=== PATIENT | female | born 1950 | race Caucasian/White ===

== ENCOUNTER 2016-05-19 17:06 | Inpatient (IN) | payer OTHER ==
[~2016-05-19] VITALS: Ht 167.6 cm; Wt 69.1 kg
[~2016-05-19 17:06] MED LIST: BENA10TA48 PO; DOCU-144 PO; FER325 PO; NIFE30TA60 PO; OMEP40CA6 PO
[2016-05-19 20:43] VITALS: PULSE 100
[2016-05-19 21:00] VITALS: BP 167/84; RESP 20
[2016-05-19 22:30] VITALS: BP 146/67; PULSE 91; RESP 18
[2016-05-19] MEDS ORDERED: hydrALAzine 20 MG INJ IV PRN (22:30)
[2016-05-19] MEDS ORDERED: ACETAMINOPHEN 325 MG TAB PO PRN (22:30)
[2016-05-19] MEDS: DEXTROSE 5%-0.45% NACL 1,000 ML IV SCH (22:35)
[2016-05-19 23:46] VITALS: Ht 167.6 cm; Wt 69.1 kg
[2016-05-20] VITALS (8 sets, daily range): BP systolic 116–146; BP diastolic 59–67; PULSE 80–97; RESP 18–21
[2016-05-20] MEDS ORDERED: SMV40T PO (03:23)
[2016-05-20] MEDS ORDERED: CLOP75TA27 PO (03:23)
[2016-05-20] MEDS ORDERED: OMEP20CA16 PO (03:23)
[2016-05-20] MEDS ORDERED: AMLO-147 PO (03:23)
[2016-05-20] MEDS ORDERED: FOLI-49 PO (03:23)
[2016-05-20] MEDS: PANTOPRAZOLE 40 MG INJ IV SCH ×2 (05:28→17:51)
[2016-05-20 06:50] LABS: ALBUMIN 3.4 g/dl (3.3-4.9)
[2016-05-20 06:51] LABS: POTASSIUM 3.7 mmol/L (3.5-5.1)
[2016-05-20 06:53] LABS: BILIRUBIN,INDIRECT 0.3 mg/dl (0-1.1); BILIRUBIN,TOTAL 0.3 mg/dl (0.2-1.3); CALCIUM 8.4 mg/dl (8.4-10.2); CREATININE 0.49 mg/dl (0.44-1.00); TOTAL PROTEIN 6.8 g/dl (6.1-8.1)
[2016-05-20 07:04] LABS: HEMATOCRIT 24.1 % (37.0-47.0); HEMOGLOBIN 7.9 g/dl (12.0-16.0); MEAN CORPUSCULAR HEMOGLOBIN 24.2 pg (29.0-33.0); MEAN CORPUSCULAR HGB CONC 32.9 g/dl (32.0-37.0); MEAN CORPUSCULAR VOLUME 73.6 fl (82.0-101.0); RED BLOOD COUNT 3.28 10^6/ul (4.20-5.40); RED CELL DISTRIBUTION WIDTH 20.3 % (11.5-14.5); UNCORRECTED WBC 4.6 10^3/ul (4.8-10.8); WHITE BLOOD COUNT 4.6 10^3/ul (4.8-10.8)
[2016-05-20 07:11] LABS: CONDITION 1; LH ANALYZER COMMENTS 1; SUSPECT 1
[2016-05-20 07:12] LABS: MEAN PLATELET VOLUME 12.1 fl (7.4-10.4); PLATELET COUNT 158 10^3/UL (140-440)
[2016-05-20 09:53] LABS: EOSINOPHILS # 0.2 10^3/ul (0.0-0.5); MONOCYTE # 0.6 10^3/ul (0.3-0.9); NEUTROPHIL # 1.8 10^3/ul (1.6-7.5)
[2016-05-20 09:54] LABS: ANISOCYTOSIS 2+; HYPOCHROMASIA 2+; MICROCYTOSIS 2+
[2016-05-20 09:55] LABS: POLYCHROMASIA 1+
[2016-05-20 09:56] LABS: PLATELET ESTIMATE PLT APPEAR ADEQUATE
--- NOTE | 2016-05-20 09:56 | QN ---
Documentation Comment [id number] IVORY CUETO MD May 20, 2016 09:56
--- NOTE | 2016-05-20 13:01 | CONS ---
Date/Time of Note Date/Time of Note DATE: 05/20/16 TIME: 12:53 Assessment/Plan Assessment/Plan Chief Complaint/Hosp Course Impression: 1. Anemia: stable after transfusion 2. Osteoarthritis 3. dyslipidemia Recommendations: 1. continue protonix 40 mg po bid until she receives EGD and colonoscopy 2. patient will f/u with her out-pt GI once insurance authorization approved for EGD and colonoscopy 3. will perform emergent EGD and colonosocopy if pt develops s/s of overt GIB with downtrending h/h 4. as h/h stable and no e/o overt GIB, ok from GI perspective to dc home to f/u with her PCP and GI MD. Problems: Consultation Date/Type/Reason Admit Date/Time May 19, 2016 at 20:30 Type of Consultation: GI Reason for Consultation symptomatic anemia, r/o GIB Hx of Present Illness 65 yo F, h/o OA and hyperlipidemia, admitted for symptomatic anemia. She was found to have anemia and referral to GI was made and she was awaiting insurance authorization. Unfortunately, she was found to have hgb 7 with orthostatic symptoms and sent by her PCP to hospital. She is s/p pRBC transfusion. Occult blood done in ER is trace positive. Patient denies melena, BRBPR, coffee ground emesis, or hematemesis. She also denies N/V, abdominal pain, dysuria. She denies orthostatic symptoms after blood transfusion. She wishes to go home to see the GI doctor who her PCP referred her to. She denies taking NSAIDS for her osteoarthritis. All point ROS administered, pertinent positives and negatives in HPI otherwise negative. Past Medical History Medical History: GI bleed, high cholesterol, other (osteoarthritis) Past Surgical History Past Surgical Hx: no surgical history Family History Significant Family History: no pertinent family hx Social History Alcohol Use: none Smoking Status: Never smoker Drug Use: none Exam/Review of Systems Vital Signs Vitals Vital Signs Date Time Temp Pulse Resp B/P Pulse Ox O2 Delivery O2 Flow Rate FiO2 05/20/16 12:39 80 05/20/16 08:00 98.3 18 133/64 98 Intake and Output 05/19/16 05/19/16 05/20/16 15:00 23:00 07:00 Intake Total 1020 ml Balance 1020 ml Exam Constitutional: oriented, well developed Psych: nl mood/affect, no complaints Head: atraumatic, normocephalic Eyes: EOMI, nl conjunctiva, nl lids, nl sclera ENMT: mucosa pink and moist, nl external ears & nose, nl lips & teeth, nl nasal mucosa & septum Neck: non-tender, supple Respiratory: clear to auscultation, normal air movement Cardiovascular: nl pulses, regular rate and rhythm Gastrointestinal: bowel sounds, nl liver, spleen, non-tender, soft Musculoskeletal: nl extremities to inspection, nl gait and stance Neurological: nl mental status, nl speech, nl strength Skin: nl turgor Results Result Diagram: 05/20/16 0530 05/20/16 0530 Results 24 hrs Laboratory Tests Test 05/20/16 05:30 Alanine Aminotransferase (ALT/SGPT) 51 Albumin 3.4 Albumin/Globulin Ratio 1.00 Alkaline Phosphatase 241 H Anion Gap 16 Anisocytosis 2+ Aspartate Amino Transf (AST/SGOT) 33 Basophils # Basophils % Blood Morphology Comment Blood Urea Nitrogen 9 Calcium Level 8.4 Carbon Dioxide Level 23 Chloride Level 110 Creatinine 0.49 Direct Bilirubin 0.00 Eosinophils # 0.2 Eosinophils % 4.0 Giant Platelets OCCASIONAL Globulin 3.40 H Glucose Level 91 Hematocrit 24.1 #L Hemoglobin 7.9 L Hypochromasia 2+ Indirect Bilirubin 0.3 Large Platelets FEW Lymphocytes # 2.0 Lymphocytes % 43.0 Mean Corpuscular Hemoglobin 24.2 #L Mean Corpuscular Hemoglobin Concent 32.9 Mean Corpuscular Volume 73.6 L Mean Platelet Volume 12.1 H Microcytosis 2+ Monocytes # 0.6 Monocytes % 14.0 H Neutrophils # 1.8 Neutrophils % 39.0 Nucleated Red Blood Cells # Platelet Count 158 Platelet Estimate PLT APPEAR ADEQUATE Polychromasia 1+ Potassium Level 3.7 Red Blood Count 3.28 #L Red Cell Distribution Width 20.3 H Sodium Level 145 H Total Bilirubin 0.3 Total Protein 6.8 White Blood Count 4.6 #L Medications Medications Current Medications Hydralazine HCl 10 mg 10 mg Q6H PRN IV systolic BP >170; Start 05/19/16 at 22: 30 Dextrose/Sodium Chloride (D5-1/2ns) 1,000 ml @ 50 mls/hr Q20H IV Last administered on 05/19/16t 22:35; Admin Dose 50 MLS/HR; Start 05/19/16 at 22:30 Acetaminophen (Tylenol Tab) 650 mg Q6H PRN PO PAIN AND OR ELEVATED TEMP; Start 05/19/16 at 22:30 Pantoprazole (Protonix Iv) 40 mg BID@06,18 IV Last administered on 05/20/16t 05 :28; Admin Dose 40 MG; Start 05/20/16 at 06:00 JARED MIR MD May 20, 2016 13:01
--- NOTE | 2016-05-20 13:15 | HP ---
DATE OF ADMISSION: 05/19/2016 HISTORY OF PRESENT ILLNESS: The patient with a history of anemia. Patient had symptomatic anemia i n the past, history of hypertension, dehydration, GERD, microcytic normochromic anemia. The patient has no history of GI bleed or postmenopausal bleed, received blood transfusion in the past. The don stallings was taken to [facility] for laboratory, data showing anemia. The patient was transfe rred here for transfusion and further workup. The patient denies any vaginal bleed or GI bleed. PAST MEDICAL HISTORY: Positive for anemia, otherwise, patient has a history of hypertension, GERD, dyslipidemia. ALLERGY HISTORY: SHE DENIES. FAMILY HISTORY: Denies. SOCIAL HISTORY: She denies. MEDICATION HISTORY: 1. Amlodipine. 2. Benazepril. 3. Plavix. 4. Folic acid. 5. Omeprazole. 6. Simvastatin. REVIEW OF THE SYSTEMS: HEENT: Unremarkable. RESPIRATORY: Unremarkable. CARDIOVASCULAR: Unremarkable. ABDOMEN: Unremarkable. EXTREMITIES: Unremarkable. GENITOURINARY: Unremarkable. MUSCULOSKELETAL: Unremarkable. PHYSICAL EXAMINATION: GENERAL: The patient is a pale-looking female, awake, alert. VITAL SIGNS: Stable. HEAD: Atraumatic, normocephalic. Pupils equal, reactive to light. Conjunctivae, no icterus. NECK: Supple. No JVD. LUNGS: Clear. CARDIOVASCULAR: S1, S2 normal. ABDOMEN: Soft, nontender. Bowel sounds present. No palpable mass or hepatosplenomegaly. No guard ing, rebound tenderness. EXTREMITIES: There is no cyanosis, clubbing, or edema. CENTRAL NERVOUS SYSTEM: The patient is awake, alert with no focal deficit. LABORATORY DATA: WBC 4.6, hematocrit 24.1, platelet count of 158. Sodium 145, potassium 3.7, alk p hos 241. IMPRESSION: 1. Symptomatic anemia, no gastrointestinal bleed per history. The patient has a history of hyperte nsion, history of dyslipidemia. PLAN: Give this patient blood transfusion. GI consultation from Dr. Moses, PPI. Follow laborator y data. Dictated By: IVORY CUETO MD BS/NTS Conf#: [id number] DID#: [id number]
--- NOTE | 2016-05-20 15:03 | PDOCDIS ---
Discharge Instructions CONDITION Patient Condition: Good HOME CARE INSTRUCTIONS: Special Diet: CL LIQUID ACTIVITY: Activity Restrictions: Slowly Increase Activity FOLLOW UP/APPOINTMENTS Appointments f/u own pcp [address] hutchinson 2 wks IVORY CUETO MD May 20, 2016 15:03
[2016-05-20] MEDS ORDERED: PANT40TA3 PO (15:05)
[2016-05-20] MEDS: DEXTROSE 5%-0.45% NACL 1,000 ML IV SCH (17:14)
--- NOTE | 2016-05-21 12:39 | QN ---
Documentation Comment [id number] IVORY CUETO MD May 21, 2016 12:39
--- NOTE | 2016-05-21 21:42 | DS ---
DATE OF ADMISSION: 05/19/2016 DATE OF DISCHARGE: 05/20/2016 HOSPITAL COURSE: The patient was admitted with symptomatic anemia. No GI bleed current in the hospital. The patient was initially transferred from [facility], received blood transfusion, was seen by Dr. jason GARNETT, covering for Dr. Moses. The patient was cleared by to be discharged and further workup as an outpatient. DISCHARGE DIAGNOSES: 1. Symptomatic anemia. No active gastrointestinal bleed. 2. History of hypertension. DISCHARGE INSTRUCTIONS: The patient to continue Protonix and follow up with own PCP and O GI doctor as possible. The patient's home medications were written and prescribed. DISPOSITION: The patient is stable at the time of discharge. Dictated By: IVORY NIELSEN/RALPH Conf#: [id number] DID#: [id number]
[2016-05-22] MEDS ORDERED: INFLUENZA VIRUS VACCINE 0.5 ML (DISPENSING) IM* ONE (09:00)
== END 2016-05-20 19:43 | disposition home or self-care (01) | DRG 812 ==
LOC: MS4 20:30 → TEL 21:11
PROVIDERS: ADMIT Internal Medicine Nephrology; ATTEND Internal Medicine Nephrology
PROC: 30233N1 Transfusion of Nonautologous Red Blood Cells into Peripheral Vein, Percutaneous Approach (ICD-10-PCS; principal; 2016-05-20)
DX: D64.9 Anemia, unspecified (principal); I10 Essential (primary) hypertension
CPT/HCPCS: 36430; 80053; 85025; 86644; 86850; 86900; 86901; 86920; 87081; C9113; J7042; P9016